=== PATIENT | male | born 2000 | race Caucasian/White ===

== ENCOUNTER 2024-05-19 11:57 | Emergency (ER) | payer OTHER ==
[2024-05-19 12:16] VITALS: O2SAT 100
--- NOTE | 2024-05-19 12:16 | ED Physician Documentation ---
PD HPI HEENT - Stated complaint Stated Complaint: RT EYE LOSS OF PERIPHERAL VISSION - Chief complaint Chief Complaint: Heent - Additional information Additional information: 23-year-old male with no pertinent past medical history wears glasses intermittently for corrective lenses comes to the emergency department for 5 to 10 minutes of peripheral vision loss. Patient says that he was in a meeting with his boss going over annual review he said that it was not stressful he has had no issues with it but started to get nervous because of the loss of his peripheral vision. It has now fully resolved he said that he was texting his [place] who told him to call the nurse line and the nurse line told him to come to the emergency department for further evaluation. Patient is experiencing very mild subtle left forehead pain no history of migraines or headaches. No nausea or vomiting he is completely neurologically intact able to ambulate without any difficulties no slurred speech no unilateral weakness or focal neurological deficits. PD PAST MEDICAL HISTORY - Present Medications Home Medications: Ambulatory Orders Medication Instructions Recorded Confirmed No Known Home Medications 05/19/24 05/19/24 - Allergies Allergies/Adverse Reactions: Allergies Allergy/AdvReac Type Severity Reaction Status Date / Time codeine Allergy Rash Verified 05/19/24 12:12 - Social History Does the pt smoke?: No Smoking Status: Current every day smoker Does the pt drink ETOH?: Yes Does the pt have substance abuse?: No - Immunizations Immunizations are current?: Yes - POLST Patient has POLST: No PD ED PE NORMAL - Vitals Vital signs reviewed: Yes - General General: Alert and oriented X 3, No acute distress, Well developed/nourished - HEENT HEENT: Atraumatic, PERRL, EOMI, Moist mucous membranes - Derm Derm: Normal color, Warm and dry, No rash - Neuro Neuro: Alert and oriented X 3, records management manager 2-12 intact, No motor deficit, No sensory deficit, Normal speech Eye Opening: Spontaneous Motor: Obeys Commands Verbal: Oriented GCS Score: 15 - Psych Psych: Normal mood, Normal affect PD ED PE EXPANDED - Eyes Eyes: PERRL, Normal accommodation, EOMI Results - Vitals Vitals: Vital Signs - 24 hr 05/19/24 05/19/24 12:05 12:42 Temperature 37.1 C 37.1 C Heart Rate 54 L 50 L Respiratory 17 14 Rate Blood Pressure 129/83 H 129/82 H O2 Saturation 100 100 Oxygen O2 Source Room air PD Medical Decision Making - ED course ED course: 23-year-old male presents emergency department for brief fully resolved episode of peripheral vision loss. He has no eye pain no eye pain with extraocular movement he is completely neurologically intact he does have a very mild left forehead ache but not quite as bad as a headache. This could be related to an aura with a possible migraine patient does not have any head pain or migraine symptoms at this point in time he was offered Tylenol ibuprofen but kindly declined and said that he has some at home. Given that he has no neurological deficits and he is completely neurologically intact I do not believe that this is not related to a stroke or some sort of other neurological emergency. See nurse note for Snellen chart visual acuity exam he says that his visual acuity is at his baseline he normally wears corrective lenses and says that his vision does not feel any worse than normal.Patient is safe to discharge at this point in time he is told to follow-up with his lead radiologic technologist outpatient return precautions given all questions answered. Departure - Departure Disposition: 01 Home, Self Care Clinical Impression: Loss of peripheral visual field Qualifiers: Laterality: right Qualified Code(s): H53.451 - Other localized visual field defect, right eye Instructions: Headaches Migraine and Tension Comments: Thank you for trusting us with your care. There is no interventions that are warranted especially given the fact that your peripheral vision loss is fully resolved on its own. Please follow-up with your lead radiologic technologist for further evaluation and let your primary care provider know about today's ER visit. Go home drink plenty of fluids we offered you Tylenol ibuprofen but you said that you had some at home I would take this just on the off chance you are developing a headache or migraine. Forms: PCP List Discharge Date/Time: 05/19/24 12:42
[2024-05-19 12:46] VITALS: BP 129/82
== END 2024-05-19 12:42 | disposition home or self-care (01) ==
LOC: ED 11:57
DX: H53.451 Other localized visual field defect, right eye (principal)
CPT/HCPCS: 99282; 99283